=== PATIENT | female | born 1945 | race Caucasian/White ===

== ENCOUNTER 2018-04-17 16:03 | Emergency (ER) | payer OTHER, BC ==
--- NOTE | 2018-04-17 16:06 | PDOC ---
Attending Attestation - Resident Resident Name: Reece Butts - ED Attending Attestation I have performed the following: I have examined & evaluated the patient, The case was reviewed & discussed with the resident, I agree w/resident's findings & plan, Exceptions are as noted - HPI HPI: 04/17/18 17:09 Chief complaint: Hematuria, urinary urgency, and a "fullness" in the suprapubic area. History of present illness: Symptoms began this morning. Review of systems: No fever/chills, back pain, chest pain, shortness of breath, abdominal pain, nausea, vomiting, diarrhea, vaginal bleeding or discharge. Past medical history: Healthy female with no active medical or surgical problems. No significant illnesses past or present. Social/family history reviewed and noncontributory Physical exam: Alert and oriented no acute distress cooperative Abdomen soft and nontender without mass or organomegaly nondistended normal bowel sounds No CVAT Impression: UTI, probable atrophic vaginitis Plan: Urinalysis, urine culture, empiric antibiotics, Pyridium, and follow-up. - Physicial Exam PE: 04/17/18 17:13 As above - Medical Decision Making 04/17/18 17:13 UTI, probable atrophic vaginitis. Urinalysis shows greater than 100 white cells greater than 100 red cells. Leukocyte esterase is positive but nitrites are negative. White blood count is 15,000, but there is no fever, back pain, or other sign of serious kidney infection. Renal function is normal. Fluids, antibiotics, and follow-up. 04/17/18 17:37 04/17/18 17:38
--- NOTE | 2018-04-17 16:33 | PDOC ---
History of Present Illness - General Chief Complaint: Urinary Problem Stated Complaint: lower abdominal discomfort and blood in urine Time Seen by Provider: 04/17/18 16:20 - History of Present Illness Initial Comments: 72 yo F with no pmh is here because this morning while she was at a restaurant she felt a sudden urge to urinate. When she sat on the toilet she looked down and saw some blood in the urine. She denies any dysuria, frequency, hesitancy, flank pain, genital pain or suprapubic pain. Also denies any recent fevers, chills or infections. She denies any significant gynecological history. She reports that her grandmother from an unspecified gynecological cancer. She denies any chest pain, SOB, difficulty breathing, back pain, neck pain, headache, calf pain, or other complaints. Allergies: NKA, NKDA PCP: None Social Hx: Denies cigarette, alcohol, or illicit drug usage. Past History - Past Medical History Allergies/Adverse Reactions: Allergies Allergy/AdvReac Type Severity Reaction Status Date / Time No Known Allergies Allergy Verified 04/17/18 17:03 Home Medications: Ambulatory Orders Aspirin [ASA -] 81 mg PO DAILY 09/03/12 Sulfamethoxazole/Trimethoprim [Bactrim Ds -] 1 tab PO BID #14 tablet 04/17/18 Cardiac Disorders: No HTN: No - Immunization History Immunization Up to Date: Yes - Suicide/Smoking/Psychosocial Hx Smoking Status: No Smoking History: Never smoked Number of Cigarettes Smoked Daily: 0 Hx Alcohol Use: No Substance Use Type: None Review of Systems - Review of Systems Comments:: CONSTITUTIONAL: Absent: fever, no chills, no fatigue EYES: Absent: visual changes ENT: Absent: ear pain, no sore throat CARDIOVASCULAR: Absent: chest pain, no palpitations RESPIRATORY: Absent: cough, no SOB GI: Absent: abdominal pain, no nausea, no vomiting, no constipation, no diarrhea GENITOURINARY: Present: urgency + hematuria. Absent: dysuria, no frequency MUSKULOSKELETAL: Absent: back pain, no arthralgia, no myalgia SKIN: Absent: rash NEURO: Absent: headache *Physical Exam - Physical Exam Comments: GENERAL: Well-appearing, well-nourished. No apparent distress. HEENT: Normocephalic, atraumatic. PERRL, EOM intact. CARDIOVASCULAR: Normal S1, S2. Regular rate and rhythm. PULMONARY: Clear to auscultation bilaterally. ABDOMEN: No suprabubic pain. No CVA tenderness. Soft, non-distended, non-tender. EXTREMITIES: Normal ROM in all four extremities. No gross deformities. SKIN: Warm, dry. No rash NEUROLOGICAL: No focal neurological deficits. ED Treatment Course - LABORATORY CBC & Chemistry Diagram: 04/17/18 17:02 04/17/18 17:02 Medical Decision Making - Medical Decision Making 72 yo F with no pmh is here because this morning while she was at a restaurant she felt a sudden urge to urinate. When she sat on the toilet she looked down and saw some blood in the urine. She denies any dysuria, frequency, hesitancy, flank pain, genital pain or suprapubic pain. - vitals are WNL. - No Suprapubic TTP, no CVA tenderness. DD includes but not limited to: uti/pylo, uterine cancer, other supervisor ordnance truck installation cancer, abnormal uterine bleeding. Plan: Cbc, Cmp, Ua/UC, re-assess. UA shows 2+ LE consistent with a UTI. We will prescribe Bactrim DS for 10 days, refer patient to urology FU, give her a PCP, and DC. *DC/Admit/Observation/Transfer Diagnosis at time of Disposition: UTI (urinary tract infection) - Discharge Dispostion Disposition: HOME Condition at time of disposition: Stable Decision to Admit order: No - Prescriptions Prescriptions: Sulfamethoxazole/Trimethoprim [Bactrim Ds -] 1 tab PO BID #14 tablet - Referrals Referrals: Damaso Young MD., [Staff Physician] - Sy Dempsey MD [Staff Physician] - Yemi Mccloud MD [Staff Physician] - - Patient Instructions Printed Discharge Instructions: Urinary Tract Infection Additional Instructions: You came into the ER with blood in your urine. We looked at your blood work and urine and found that you have a urinary tract infection - please see attached handout for more information on a urinary tract infection. Please go to the pharmacy and pickup the antibiotic we are sending for you. Take one pill twice a day for the next 10 days. Please also make sure to schedule a follow up appointment with a urologist that we are referring you to in the next 5 to 7 days to make sure you are getting better and that you are well. Please come back to the emergency department if your symptoms worsen, you develop a fever, or have any other new or worsening concerns. Thank you for coming to the [facility]. We hope you feel better soon! Print Language: AMHARIC - Post Discharge Activity
[2018-04-17 17:04] VITALS: BP 128/81; PULSE 78; TEMP 97.9; BMI 18.8
[2018-04-17 17:06] LABS: HEMOGLOBIN 14.1 GM/dl (10.7-15.3); RBC 4.83 M/mm3 (3.60-5.2)
[2018-04-17 17:09] LABS: BASO % 0.4 % (0-2.0); EOS % 0.2 % (0-4.5); HEMATOCRIT 43.2 % (32.4-45.2); LYMPH % 7.2 % (8-40); MCH 29.3 pg (25.7-33.7); MCHC 32.7 g/dl (32.0-36.0); MEAN CELL VOLUME 89.5 fl (80-96); MEAN PLT VOLUME 10.5 fl (7.5-11.1); MONO % 6.6 % (3.8-10.2); NEUT % 85.6 % (42.8-82.8); PLATELET COUNT 215 K/MM3 (134-434); RDW 13.2 % (11.6-15.6)
[2018-04-17 17:13] LABS: ALBUMIN 4.3 g/dl (3.5-5.0); ALK PHOS 62 U/L (32-92); ANION GAP 8 MMOL/L (8-16); BILIRUBIN,TOTAL 0.6 mg/dl (0.2-1.0); BLOOD UREA NITROGEN 16 mg/dl (7-18); CALCIUM 9.1 mg/dl (8.4-10.2); CHLORIDE 101 mmol/L (98-107); CO2 26 mmol/L (22-28); CREATININE 0.7 mg/dl (0.6-1.3); GLUCOSE,RANDOM 105 mg/dl (74-106); POTASSIUM 3.8 mmol/L (3.5-5.1); SGOT/AST 25 U/L (10-42); SGPT/ALT 21 U/L (10-40); SODIUM 135 mmol/L (136-145); TOT PROT 6.4 g/dl (6.4-8.3)
[2018-04-17 17:26] LABS: URINE APPEARANCE Cloudy; URINE BILIRUBIN Negative (NEGATIVE); URINE COLOR Amber; URINE GLUCOSE (UA) Negative (NEGATIVE); URINE KETONE Negative (NEGATIVE); URINE LEUK ESTERASE 2+ (NEGATIVE); URINE NITRITE Negative (NEGATIVE); URINE PROTEIN 2+ (NEGATIVE); URINE UROBILINOGEN 0.2 (0.2-1.0)
[2018-04-17 17:27] LABS: URINE RBC >100 /hpf (0-3); URINE WBC >100 (0-5)
[2018-04-17 17:28] LABS: URINE BACTERIA 3+ /hpf (NEGATIVE)
== END 2018-04-17 17:51 | disposition home or self-care (01) ==
LOC: FER 16:03
DX: R05 Cough (principal); N39.0 Urinary tract infection, site not specified
CPT/HCPCS: 36415; 80053; 81003; 81015; 85025; 87086; 87186; 99282-25